=== PATIENT | female | born 1990 | race Caucasian/White ===

== ENCOUNTER 2018-05-27 16:27 | Emergency (ER) | payer OTHER ==
[2018-05-27 19:20] LABS: APPEARANCE,URINE CLEAR; BILIRUBIN,URINE NEGATIVE (NEGATIVE); COLOR,URINE YELLOW; GLUCOSE, URINE NEGATIVE (NEGATIVE); KETONES,URINE TRACE mg/dL (NEGATIVE); LEUKOCYTE ESTERASE,URINE NEGATIVE (NEGATIVE); NITRITE,URINE NEGATIVE (NEGATIVE); PROTEIN,URINE NEGATIVE (NEGATIVE); URINE SPECIFIC GRAVITY 1.012; UROBILINOGEN,URINE NEGATIVE mg/dL (<2.0)
--- NOTE | 2018-05-27 19:33 | RADIOLOGY REPORT (SQ) ---
EXAM DESCRIPTION: U/S OB TRANSVAGINAL W/O DOP COMPLETED DATE/TIME: 05/27/2018 7:01 pm REASON FOR STUDY: pelvic pain in COMPARISON: None. TECHNIQUE: Transvaginal and transabdominal static and realtime grayscale images acquired of the pelv is. Additional selected spectral and color Doppler images recorded. All images stored on PACs. CLINICAL AGE: 0 weeks, 5 days BHCG: Not available. LIMITATIONS: None. FINDINGS: UTERUS: No visualized intrauterine . RIGHT ADNEXA: Normal ovary with normal vascular flow. No adnexal free fluid. No adnexal masses. LEFT ADNEXA: Normal ovary with normal vascular flow. No adnexal free fluid. No adnexal masses. FREE FLUID: A small amount of simple appearing free fluid is seen within the pelvic cul-de-sac. OTHER: No other significant finding. IMPRESSION: NO VISUALIZED INTRA- OR EXTRAUTERINE . bHCG LEVEL NOT AVAILABLE FOR CORRELATION WITH US FINDINGS. ECTOPIC CANNOT BE EXCLUDED. FOLLOW-UP ULTRASOUND AND SERIAL BHCG LEVELS STRONGLY RECOMMENDED TO ACCURATELY ASSESS STATU S. TECHNICAL DOCUMENTATION: JOB ID: [id number]- All Rights Reserved Reading location - IP/workstation name: [email or web address]
[2018-05-27 20:26] LABS: ABSOLUTE LYMPHOCYTES (AUTO) 2.2 10^3/uL (0.5-4.7); ABSOLUTE MONOCYTES (AUTO) 0.5 10^3/uL (0.1-1.4); BASOPHILS % (AUTO) 0.4 % (0-2); EOSINOPHILS % (AUTO) 0.2 % (0-6); HEMOGLOBIN 14.5 g/dL (12.0-15.5); LYMPHOCYTES % (AUTO) 25.1 % (13-45); MEAN CORPUSCULAR HEMOGLOBIN 28.2 pg (27.0-33.4); MEAN CORPUSCULAR HGB CONC 34.5 g/dL (32.0-36.0); MEAN CORPUSCULAR VOLUME 82 fl (80-97); MONOCYTES % (AUTO) 5.5 % (3-13); PLATELET COUNT 253 10^3/uL (150-450); RED BLOOD COUNT 5.15 10^6/uL (3.72-5.28); RED CELL DISTRIBUTION WIDTH 13.3 % (11.5-14.0); SEGMENTED NEUTROPHILS % (AUTO) 68.8 % (42-78); TOTAL CELLS COUNTED % (AUTO) 100 %; WHITE BLOOD COUNT 8.7 10^3/uL (4.0-10.5)
--- NOTE | 2018-05-27 21:53 | ER Document Report ---
ED General - General Chief Complaint: Vag Bleeding, +preg <12wks Stated Complaint: VAGINAL BLEEDING Time Seen by Provider: 05/27/18 21:40 Primary Care Provider: WILBER THORNTON MD [ACTIVE STAFF] - Follow up in 3-5 days Notes: Patient is a 28-year-old female who presents emergency department with a chief complaint of vaginal bleeding and the positive test at home. Has not seen [facility] or primary care. She states that she has been watching her ovulation to see if she can get . She states that she has sharp cramping sensation on her right side in her pelvic area, but denies any pain. She is also getting fertilization. She was seen by urgent care and was sent here to the emergency department. TRAVEL OUTSIDE OF THE [place] IN LAST 30 DAYS: No - Related Data Allergies/Adverse Reactions: No Known Allergies Allergy (Unverified 05/27/18 16:54) Past Medical History - Social History Smoking Status: Never Smoker Family History: Reviewed & Not Pertinent Review of Systems - Review of Systems Notes: REVIEW OF SYSTEMS: CONSTITUTIONAL : Denies recent illness. Denies recent unintentional weight loss. Denies fever, chills, or sweats. EENT: Denies eye, ear, throat, or mouth pain, discharge, or symptoms. Denies nasal or sinus congestion. CARDIOVASCULAR: Denies chest pain. RESPIRATORY: Denies shortness of breath, cough, congestion, difficulty breathing, or wheezing. GASTROINTESTINAL: Denies nausea, vomiting, and diarrhea. Denies abdominal pain. Denies constipation. Last BM: Today GENITOURINARY: Denies difficulty urinating, burning, blood in urine, urgency or frequency. FEMALE GENITOURINARY: See HPI MUSCULOSKELETAL: Denies neck and back pain. Denies joint pain or swelling. SKIN: Denies rash, itchiness, or lesions HEMATOLOGIC : Denies easy bruising or bleeding. LYMPHATIC: Denies swollen, painful, enlarged glands. NEUROLOGICAL: Denies no numbness or tingling denies weakness. Denies headache. Denies altered mental status. Denies alteration in speech. PSYCHIATRIC: Denies stress, anxiety, alteration in sleep patterns, or depressio n. All other systems reviewed and negative. Physical Exam - Vital signs Vitals: Temp Pulse Resp BP Pulse Ox 98.8 F 74 16 128/88 H 98 05/27/18 17:05 05/27/18 17:05 05/27/18 17:05 05/27/18 17:05 05/27/18 17:05 - Notes Notes: PHYSICAL EXAMINATION: GENERAL: Appears well, healthy, well-nourished, no acute distress. HEAD: Normocephalic, atraumatic. EYES: PERRL, conjunctiva normal, all extraocular movements intact, sclera nonicteric ENT: Moist mucous membranes. NECK: Supple, no noticeable swelling, redness, rash. Normal range of motion. LUNGS: Equal breath sounds bilaterally and clear to auscultation. No wheezes rales or rhonchi. CARDIOVASCULAR: S1-S2, regular rate, regular rhythm. Radial pulses 2+, normal. ABDOMEN: Normoactive bowel sounds. Soft, nontender, no guarding, no rebound tenderness, and no masses palpated. EXTREMITIES: Normal strength and range of motion, no pitting or edema. No cyanosis. NEUROLOGICAL: Moves all extremities upon command. Strength 5/5 in all extremities. PSYCH: Normal mood, normal affect. SKIN: Warm, dry. No rash, lesions, ulcerations noted. Normal skin turgor. Course - Re-evaluation Re-evalutation: Patient's hematology is unremarkable and she is not anemic. Her beta hCG is 205 and she has a positive test. Unfortunately the ultrasound does not show if there is a possible ectopic . There is a possibility that she miscarried and she will be sent to [facility] for follow-up and to trend her hCG and order another ultrasound. Her urine did show a moderate amount of blood in it, consistent with vaginal bleeding. I have discussed that she needs to follow-up with [facility] and she will take Tylenol as needed for pain. She is in agreement with this plan. Amy bal discharge instructions were given to the patient. They verbalized understanding. They are stable for discharge. 05/27/18 22:41 And is a negative and she needs the RhoGam shot. I called her to return to the emergency department. She states that she will come back and receive the RhoGam shot. - Vital Signs Vital signs: Temp Pulse Resp BP Pulse Ox 98.6 F 76 16 128/85 H 100 05/27/18 23:44 05/27/18 23:44 05/27/18 23:44 05/27/18 23:44 05/27/18 23:44 - Laboratory Result Diagrams: 05/27/18 20:10 Laboratory results interpreted by me: 05/27/18 05/27/18 18:58 20:10 Beta HCG, Quant 205.87 H Urine Ketones TRACE H Urine Blood MODERATE H Discharge - Discharge Clinical Impression: Vaginal bleeding Condition: Stable Disposition: HOME, SELF-CARE Additional Instructions: You were seen today in the emergency department for vaginal bleeding and pain on the right side of your pelvis. Your test was positive, but the levels were low. The ultrasound did not show anything gestational sac. There is a possibility you might have miscarried or you may be too early to see any . Please follow-up with [facility] in regards to this visit. If you have worsening bleeding, have worsening abdominal pain, or have any symptoms that are worrisome to you, please return to the emergency department. Referrals: WILBER THORNTON MD [ACTIVE STAFF] - Follow up in 3-5 days
[2018-05-27 23:46] VITALS: BP 128/85
== END 2018-05-27 22:05 | disposition home or self-care (01) ==
LOC: ER 16:27
DX: N93.8 Other specified abnormal uterine and vaginal bleeding (principal); Z32.01 Encounter for pregnancy test, result positive
CPT/HCPCS: 99284; 96372; 86900; 86901; 36415; 86850; 84702; 85025; 81001; 76817; J2790

== ENCOUNTER → 2018-05-31 | Outpatient (CLI) | payer OTHER | LOC: OD 15:29 | PROVIDERS: ATTEND Obstetrics & Gynecology Gynecology | DX: O20.0 Threatened abortion (principal) | CPT/HCPCS: 36415; 84702 ==